=== PATIENT | female | born 1955 | race Caucasian/White ===

== ENCOUNTER 2022-09-29 13:20 | Outpatient (CLI) | payer OTHER, SELFPAY ==
--- NOTE | 2022-09-29 13:30 | ECG_ITS ---
Measurements Intervals [place] Rate: 61 P: 75 TX: 149 QRS: 64 QRSD: 67 T: 59 QT: 381 QTc: 385 Interpretive Statements SINUS RHYTHM INCOMPLETE RIGHT BUNDLE BRANCH BLOCK POSSIBLE LEFT ATRIAL ENLARGEMENT LOW QRS VOLTAGE IN PRECORDIAL LEADS BASELINE ARTIFACT- I, II, III, AVR, AVL, AVF, V1-V6 BORDERLINE ECG NO PREVIOUS ECG AVAILABLE FOR COMPARISON Electronically Signed On 09-29-2022 14:50:15 CDT by Nguyễn Castro D.O.
== END 2022-09-29 13:21 | disposition home or self-care (01) ==
LOC: ANHSURGERY 13:25
PROVIDERS: PCP Nurse Practitioner Family; Visit Provider Surgery Plastic and Reconstructive Surgery
DX: F17.210 Nicotine dependence, cigarettes, uncomplicated (principal); Z01.818 Encounter for other preprocedural examination; I45.10 Unspecified right bundle-branch block
CPT/HCPCS: 93005

== ENCOUNTER 2022-10-05 01:04 | Day surgery (SDC) | payer OTHER, SELFPAY ==
[2022-09-29 08:52] VITALS: BMI 20.1
--- NOTE | 2022-09-29 09:01 | PC.NURSE ---
PRE-OP INSTRUCTIONS, PLEASE READ CAREFULLY Report to the Outpatient Waiting Room, entrance under the green pavilion located off [facility], at time _1030_ on date _10/05/22_. Planned Procedure Time: _1230_. Time changes happen often and if your time is changed the preop area will call you the afternoon before. - You and your visitor will be asked to self-screen and do not enter if you have any COVID symptoms. - A mask is optional within the hospital at this time. Patients may have clear liquids (water, carbonated beverages, clear teas, apple juice) until 3 hours prior to surgery (0930 AM) with a maximum of 20 ounces. - No food from midnight until time of surgery Take the following medications with a SIP of water the morning of surgery: _LEVOTHYROXINE_ DO NOT STOP ANY OF YOUR OTHER PRESCRIPTION MEDICATIONS PRIOR TO SURGERY ?EXCEPT THE FOLLOWING Medications to discontinue per ANESTHESIA - _OVER THE COUNTER SUPPLEMENTS 3 DAYS PRIOR TO SURGERY, Date to take last dose 10/01/22_ Please no make-up, nail tajik, hairspray, perfume, deodorant, or body powder the day of surgery. No jewelry (including any body piercings) or valuables the day of surgery, leave them at home. Please take a shower or bath the night before, or the morning of, surgery with an antibacterial soap. Wear comfortable, loose fitting clothing. - Jewelry must be removed prior to entering the operating room. Rings and piercings that are not removed may be cut off. - The hospital will not accept responsibility for valuables. - Please leave all valuables, including medications, at home the day of surgery. If you are going home after surgery, a licensed local city driver must drive you home. - NO public transportation without another adult if you receive anesthesia. - We recommend that an adult stay with you for 24 hours following discharge. - We also recommend that you do not drive, make important decision, drink alcoholic beverages, or take any drugs that were not prescribed by your health care provider for at least 24 hours after your discharge time. Follow any additional instructions given to you from your surgeon. If you or anyone in your household have experienced Covid symptoms in the past week, please notify your surgeon or the nurse liaison at the phone number below for possible testing. Telephone instructions given to _PATIENT_and asked if any additional questions and then verbalized understanding. Patient advised to call surgeon office or pre surgery nurse liaison [phone] if any additional questions.
[2022-10-05] VITALS (8 sets, daily range): BP systolic 90–119; BP diastolic 53–72; PULSE 55–82; RESP 14–25; TEMP 36.2–37.3; O2SAT 95–100
[2022-10-05] MEDS: LACTATED RINGERS 1,000 ML 30 ML IV CONT ×2 (11:00→14:55)
[2022-10-05] MEDS: SCOPOLAMINE 1.5 MG PATCH TRANSDERM (11:38)
--- NOTE | 2022-10-05 12:15 | WPDHPUPDATE1 ---
History and Physical Update Update Date/Time: 10/05/22 12:15 History and Physical has been reviewed, including an updated exam of the patient. There are NO changes in the patient's condition. Risks, benefits, and alternatives have been discussed and questions answered. Patient agrees to proceed with procedure.
--- NOTE | 2022-10-05 12:18 | W.PM.PROC2 ---
Procedure Note - Detailed Date of Procedure 10/05/22 Pre-op Diagnosis bilateral breast implant rupture Post-op Diagnosis Same Procedure Performed Bilateral breast implant exchange with capsulectomy Surgeon Agustin Mckeon MD Anesthesia General Findings Previous implants: Bilateral 275 cc Silicone Right - Intracapsular rupture with significant superior / lateral extracapsular rupture. Left - Intracapsular and extracapsular rupture with extensive medial (extending to dermis) and superior rupture. New implants: Bilateral Kathie Cleary SoftTouch 275 cc Right - REF# [id number] SN [id number] Left - REF# [id number] SN [id number] Description of Procedure Preoperatively the risks, benefits, alternatives were discussed in extensive detail. I wanted to be very realistic about the risks involved as well as expectations. I was clear about how we could actually make her worse. Answered all questions to satisfaction. Voiced a clear understanding. Consent obtained. She was taken the operating room placed supine on the operating room table. Anesthesia provided by anesthesiology and prepped and draped in a standard sterile fashion. Surgical time-out was taken. 1% lidocaine and 0.25% Marcaine with epinephrine was used to provide a field block. Tegaderm nipple gallagher were placed. Fifteen blade used to excise the previous IMF scars. Dissection was continued down until the capsules were identified and excised near total capsule which was sent to pathology. On the left breast there was an area extending to the dermis worriseome for vascular compromise. This was excised (6mm) and closed with 3-0 Bisoyn, 4-0 horizontal mattress Nylon. I then copiously irrigated with 3 L of saline solution on TUR tubing. Verified strict hemostasis. I then irrigated with Betadine containing solution. Using a no-touch technique and a Bowling funnel the implant was introduced into the pocket. This was closed with 2-0 PDS followed by 3-0 Monocryl and a running subcuticular 4-0 Monocryl followed by tissue glue. Dressings were placed. She was woken taken to the PACU without difficulty. All instrument sponge counts were correct at the end of the case. Estimated Blood Loss 75 Drains No Packing No Pathology Yes (Bilateral breast capsules) Complications No immediate complications Condition Stable Disposition PACU
--- NOTE | 2022-10-05 12:45 | P.PNAN_ITS ---
Anes - Initial Pre Proc Eval Procedure: Operation Date: 10/05/22 12:30 Proposed Procedures p Exchange of Bilateral Breast Implants with Capsulectomy - Agustin Mckeon MD Date/Time: 10/05/22 12:45 Surgeon: Agustin Mckeon MD Pre Op Diagnosis: bilateral breast implant rupture Patient Data Age: 67 Gender: F Height: 1.57 m Weight: 49.5 kg Last Vital Signs Temp 99.1 F 10/05/22 11:17 Pulse 59 L 10/05/22 11:17 Resp 18 10/05/22 11:17 BP 117/67 10/05/22 11:17 Pulse Ox 100 10/05/22 11:17 O2 Del Method Room Air 10/05/22 11:17 Allergies Allergy/AdvReac Type Severity Reaction Status Date / Time No Known Allergies Allergy Verified 09/29/22 08:46 Home Medications Medication Instructions Recorded Confirmed Type alendronate 70 mg tablet 70 mg PO WEEKLY 09/29/22 10/05/22 History calcium carbonate 600 mg-vitamin 1 tablet PO DAILY 09/29/22 10/05/22 History D3 10 mcg (400 unit) tablet (Calcium 600 + D(3)) cholecalciferol (vitamin D3) 125 125 mcg PO DAILY 09/29/22 10/05/22 History mcg (5,000 unit) tablet hydroxyzine HCl 25 mg tablet 25 mg 09/29/22 10/05/22 History krill 1 cap PO DAILY 09/29/22 10/05/22 History ela-[id number]-[id number]-oai-[id number]-oxr-astax 1,500 mg-165 mg-67.5 mg capsule (Krill Oil (Jordan 3 and 6)) levothyroxine 50 mcg tablet 50 mcg QAM 09/29/22 10/05/22 History magnesium 250 mg tablet 250 mg PO HS 09/29/22 10/05/22 History melatonin 5 mg capsule 5 mg HS 09/29/22 10/05/22 History Patient hx anesthesia problems: none Family hx anesthesia problems: none Results Review: All pre-operative results and documents have been reviewed as part of the pre- operative evaluation. PMFSH Social History Social History Smoking packs per day: 1 Smoking cigarettes per day: 20.0 Years smoked: 20 Smoking pack-years: 20.00 Smoking status: Former smoker Tobacco type: cigarettes Second hand tobacco smoke exposure: No Smoking end date: 03/14/06 Alcohol intake: current Drinks per week: 1 Substance use: never Substance use type: does not use Living arrangements: with family Spiritual care concerns: No Anes - Eval Final PreProcedure Day of Procedure 10/05/22 12:45 Patient weight: normal Heart: regular rate and rhythm Lungs: clear to auscultation Airway: Mallampati scale class II Neurological: alert and oriented Last oral intake: >/= 8 hours ASA classification: II Emergent: no Anesthetic plan: proceed Anesthesia type and monitoring: general LMA and standard monitoring Results Review: All pre-operative results and documents have been reviewed as part of the pre- operative evaluation. Informed Consent: The patient's anesthetic plan and its attendant risks and benefits were discussed with the patient/family/POA. Questions were solicited and answers provided to the satisfaction of the patient/family/POA.
[2022-10-05] MEDS: fentaNYL CITRATE INJ (*CRX) 100 MCG/2 ML VIAL 25 MCG IV PUSH ×7 (15:05→15:55)
--- NOTE | 2022-10-05 15:24 | SUR.PHASEI ---
1520: Simple mask removed.
[2022-10-05] MEDS: oxyCODONE HCL (*CRX) 5 MG TAB IR PO (15:57)
== END 2022-10-05 17:07 | disposition home or self-care (01) ==
PROVIDERS: PCP Nurse Practitioner Family; Visit Provider Surgery Plastic and Reconstructive Surgery
PROC: (CPT 19342; principal; 2022-10-05 12:30)
DX: T85.41XA Breakdown (mechanical) of breast prosthesis and implant, initial encounter (principal); Y83.8 Other surgical procedures as the cause of abnormal reaction of the patient, or of later complication, without mention of misadventure at the time of the procedure; Z87.891 Personal history of nicotine dependence
CPT/HCPCS: 19371; 19325; 88304; A9270; J0690; J1100; J1580; J2250; J2371; J2405; J2704; J3010; J7120